=== PATIENT | female | born 1950 | race Caucasian/White ===

== ENCOUNTER 2020-05-09 15:34 | Inpatient (IN) | payer BC, MEDICAID ==
[~2020-05-09] VITALS: Ht 162.6 cm; Wt 91.2 kg
[2020-05-09] MEDS ORDERED: ACETAMINOPHEN 325MG TABLET PO STA (16:26)
[2020-05-09] MEDS ORDERED: ONDANSETRON HCL 4MG/2ML INJ IV STA (16:26)
[2020-05-09] MEDS ORDERED: AZITHROMYCIN 500 MG in DEXT 5% WATER 250 ML IV ONE (16:30)
[2020-05-09] MEDS ORDERED: CEFTRIAXONE 1 G PREMIX 50 ML IV ONE (16:30)
[2020-05-09] MEDS ORDERED: SODIUM CHLORIDE 0.9% 1,000 ML IV ONE (16:30)
[2020-05-09 17:21] LABS: BASOPHILS % 0.4 % (0.0-2.0); HEMOGLOBIN. 14.4 g/dL (12.0-16.0); LYMPHOCYTES % 15.3 % (20.0-50.0); MEAN CORPUSCULAR HEMOGLOBIN 30.7 pg (28.0-32.0); MEAN CORPUSCULAR VOLUME 89.6 fL (81.0-99.0); MEAN PLATELET VOLUME 8.8 fl (7.4-10.4); MONOCYTES % 11.2 % (2.0-8.0); NEUTROPHILS % 73.1 % (40.0-76.0); PLATELET 244 x1000/uL (130-400); RED BLOOD CELL COUNT 4.68 mill/uL (4.2-5.4)
[2020-05-09 17:31] LABS: CHLORIDE 99 mEq/L (98-107)
[2020-05-09] MEDS ORDERED: POTASSIUM CHLORIDE 20MEQ TABLET SR PO ONE (19:00)
[2020-05-09 21:10] LABS: CLARITY URINE CLEAR (CLEAR); COLOR URINE YELLOW (YELLOW); KETONES URINE TRACE (NEGATIVE); LEUKOCYTE ESTERASE URINE NEGATIVE (NEGATIVE); NITRITE URINE NEGATIVE (NEGATIVE); OCCULT BLOOD URINE NEGATIVE (NEGATIVE); PROTEIN URINE NEGATIVE (NEGATIVE); SPECIFIC GRAVITY URINE 1.018 (1.005-1.030)
[2020-05-10] MEDS ORDERED: MORPHINE SULFATE 2 MG/ML CPJ (NOT FOR IM USE) IV PRN (02:15)
[2020-05-10 04:00] VITALS: BP 110/76
[2020-05-10 06:20] VITALS: BP_SYST 122
[2020-05-10] MEDS ORDERED: CLONIDINE 0.1MG TABLET PO PRN (06:45)
[2020-05-10] MEDS ORDERED: HYDR25TA PO (06:50)
[2020-05-10 10:46] LABS: BASOPHILS % 0.4 % (0.0-2.0); EOSINOPHILS % 0.1 % (0.0-5.0); HEMATOCRIT. 41.2 % (36.0-48.0); HEMOGLOBIN. 13.7 g/dL (12.0-16.0); LYMPHOCYTES % 31.6 % (20.0-50.0); MEAN CORPUSCULAR HEMOGLOBIN 30.2 pg (28.0-32.0); MEAN CORPUSCULAR VOLUME 90.7 fL (81.0-99.0); MEAN PLATELET VOLUME 8.9 fl (7.4-10.4); MONOCYTES % 8.3 % (2.0-8.0); NEUTROPHILS % 59.6 % (40.0-76.0); PLATELET 244 x1000/uL (130-400); RED BLOOD CELL COUNT 4.54 mill/uL (4.2-5.4); RED CELL DISTRIBUTION WIDTH 14.2 % (11.6-14.6)
[2020-05-10 10:52] LABS: CHLORIDE 102 mEq/L (98-107)
[2020-05-10 16:00] VITALS: BP 115/71
[2020-05-10] MEDS ORDERED: ASPIRIN 81MG TABLET PO SCH (16:00)
[2020-05-10 20:00] VITALS: BP 102/67
[2020-05-10] MEDS ORDERED: DEXAMETHASONE 10 MG/ML VIAL IV NR (21:00)
[2020-05-10] MEDS ORDERED: ENOXAPARIN 40MG/0.4ML SYR SUBCUT SCH (21:00)
[2020-05-10] MEDS ORDERED: ACETAMINOPHEN 325MG TABLET PO PRN (21:30)
[2020-05-10] MEDS: ASCORBIC ACID 500 MG TABLET PO SCH (21:58)
[2020-05-10] MEDS: ZINC SULFATE 220 MG ( 50 ) CAPSULE PO SCH (21:58)
[2020-05-10] MEDS: SODIUM CHLORIDE 0.9% 1,000 ML IV SCH (22:00)
[2020-05-10] MEDS ORDERED: AZITHROMYCIN 500 MG in DEXT 5% WATER 250 ML IV SCH (22:00)
[2020-05-10] MEDS ORDERED: CEFTRIAXONE 1,000 MG in DEXTROSE 5% WATER 50 ML IV SCH (22:00)
[2020-05-11] VITALS (7 sets, daily range): BP systolic 112–130; BP diastolic 55–72
[2020-05-11] MEDS: SODIUM CHLORIDE 0.9% 1,000 ML IV SCH ×2 (05:32→17:36)
[2020-05-11 07:21] LABS: BASOPHILS % 0.2 % (0.0-2.0); HEMATOCRIT. 40.6 % (36.0-48.0); HEMOGLOBIN. 13.4 g/dL (12.0-16.0); LYMPHOCYTES % 18.3 % (20.0-50.0); MEAN CORPUSCULAR HEMOGLOBIN 30.1 pg (28.0-32.0); MONOCYTES % 3.1 % (2.0-8.0); NEUTROPHILS % 78.4 % (40.0-76.0); PLATELET 224 x1000/uL (130-400); RED BLOOD CELL COUNT 4.46 mill/uL (4.2-5.4); RED CELL DISTRIBUTION WIDTH 14.1 % (11.6-14.6)
[2020-05-11 07:44] LABS: CHLORIDE 108 mEq/L (98-107)
[2020-05-11] MEDS ORDERED: DEXAMETHASONE 4MG TABLET PO SCH (09:00)
[2020-05-11] MEDS: ASCORBIC ACID 500 MG TABLET PO SCH (09:40)
[2020-05-11] MEDS: ZINC SULFATE 220 MG ( 50 ) CAPSULE PO SCH (09:40)
[2020-05-11] MEDS ORDERED: ASPIRIN 81MG EC TABLET PO SCH (11:30)
== END 2020-05-11 20:22 | disposition home or self-care (01) | DRG 871 ==
LOC: ER 15:34 → 8WST 20:05 → ENRESERV 05-10 04:07
PROVIDERS: ADMIT Internal Medicine; ATTEND Internal Medicine
DX: A41.89 Other specified sepsis (principal); U07.1 COVID-19; J15.9 Unspecified bacterial pneumonia; E87.6 Hypokalemia; I10 Essential (primary) hypertension; E66.01 Morbid (severe) obesity due to excess calories; R07.89 Other chest pain; T50.2X5A Adverse effect of carbonic-anhydrase inhibitors, benzothiadiazides and other diuretics, initial encounter; R74.01 Elevation of levels of liver transaminase levels; Z68.34 Body mass index [BMI] 34.0-34.9, adult; Z90.710 Acquired absence of both cervix and uterus; Z79.899 Other long term (current) drug therapy; Y92.89 Other specified places as the place of occurrence of the external cause; M94.0 Chondrocostal junction syndrome [Tietze]; R51.9 Headache, unspecified
CPT/HCPCS: 36415; 71045; 80048; 80053; 81003; 83605; 83880; 84145; 84484; 85025; 85379; 87635; 93005; 99285; J0456; J0696; J1100; J1650; J2270; J2405; J7030; J7040; J7060; J8540